=== PATIENT | male | born 1985 | race Caucasian/White ===

== ENCOUNTER 2020-09-17 18:02 | Emergency (ER) | payer BC, SELFPAY ==
--- NOTE | 2020-09-17 18:18 | XR_ITS ---
PROCEDURE: XR FOOT RT MIN 3V CLINICAL INDICATION: GREAT TOE PAIN COMPARISON: No exams were available for comparison FINDINGS: No fracture or dislocation. No lytic or blastic change. There is normal mineralization. The joint spaces are well-preserved. No significant degenerative/arthritic changes. No erosive changes evident. Other findings:None. IMPRESSION: No acute findings. Dictated by: Lorenzo Harry MD 09/18/2020 05:32 Lorenzo Harry MD in [place] 09/18/2020 05:32
[2020-09-17 18:22] VITALS: BP 140/94; PULSE 89; RESP 20; TEMP 37.1; O2SAT 99; BMI 42.2
--- NOTE | 2020-09-17 18:34 | HMH.EDUTC ---
[facility] [place] Disposition Clinical Impression: Toe pain, right Disposition: Home, Self-Care Condition on Discharge: Good Instructions: Toe Sprain Additional Instructions: elevate rest soak tylenol or motrin as needed for pain follow up with dr tavera if symptoms worsen or no no improvement retrun or be seen in ed Referrals: PCP,No [Primary Care Provider] - Pallavi Tavera DPM [Staff Physician] - Time of Disposition: 19:09 Medical Decision Making - [place] Inquiry Pt receiving controlled substance: No Vital Signs: 09/17/20 18:22 09/17/20 19:05 Temperature 98.7 F 98.7 F Temperature Source Oral Pulse Rate 89 Pulse Rate [Right Brachial] 89 Respiratory Rate 20 20 Blood Pressure 140/94 H Blood Pressure [Right Arm] 140/94 H Blood Pressure Mean [Right Arm] 109 Blood Pressure Source [Right Arm] Automatic Cuff Blood Pressure Position [Right Arm] Sitting 02 Sat by Pulse Oximetry 99 Oxygen Delivery Method Room Air - Lab Data Lab Results 09/17/20 18:15: Uric Acid 8.5 Orders (Tests/Meds): ORDERS Category Date Time Status XR foot RT min 3V Stat Exams 09/17/20 18:18 Taken [facility] [place] HPI - General Chief complaint: Urgent Treatment Center Stated complaint: possible broken toe R foot Time Seen by Provider: 09/17/20 18:34 Mode of Arrival: Ambulatory Source of Information: Patient Limitations: No Limitations Description of Symptoms (Recalled from Triage Doc. by RN): PATIENT C/O PAIN TO RIGHT GREAT TOE SINCE LAST WEEKEND HEENT Symptoms (Recalled from RN notes): No Resp Symptoms (Recalled from RN notes): No Skin Symptoms (Recalled from RN notes): No MS Symptoms (Recalled from RN notes): Yes Functional Status (Recalled from RN notes): wnl - History of Present Illness Provider Complaint: 35 yr old male presents for pain in rt toe. Pt states he might have dropped something on his toe but he does not remember. Pt states he is always dropping things on his feet. - Related Data Allergies Allergy/AdvReac Type Severity Reaction Status Date / Time Penicillins Allergy Verified 09/17/20 18:25 - Worker's Comp Is this a Worker's Comp case?: No [facility] History - Hepatitis A Screen Drug use history?: No High risk sexual behaviors?: No History of sexually transmitted infection?: No Currently employed?: No Childcare worker?: No Do you have indoor plumbing?: Yes Do you have electricity?: Yes Attestation statement:: This patient has been screened for Hepatitis A risk factors. I have reviewed the patient's past medical history: Yes - Social History Smoking Status: Never smoker Tobacco Type: smokeless tobacco # Packs/Day (cigarettes): 0 Alcohol Intake: never Occupational Status: other ROS Obtained: Yes Systems reviewed as appropriate & no additional complaints - Constitutional Constitutional: Reports system reviewed and no additional complaints, except as docu, Denies fever(s) - Eyes Eyes: Reports system reviewed and no additional complaints, except as docu, Denies dry eyes - ENT Ears, Nose, Mouth, and Throat: Reports system reviewed and no additional complaints, except as docu, Denies nose pain - Cardiovascular Cardiovascular: Reports system reviewed and no additional complaints, except as docu, Denies chest pain - Respiratory Respiratory: Yes system reviewed and no additional complaints, except as docu, No chest congestion - Gastrointestinal Gastrointestingal: Reports: system reviewed and no additional complaints, except as docu. Denies: nausea, vomiting - Genitourinary Male Genitourinary: Reports system reviewed and no additional complaints, except as docu - Musculoskeletal Musculoskeletal: Reports system reviewed and no additional complaints, except as docu, Reports as per HPI, Reports joint pain, Reports other - Integumentary/Breasts Skin/Breast: Reports system reviewed and no additional complaints, except as docu, Denies rash - Neurologic Neurologic: Reports system reviewed
[2020-09-17 18:41] LABS: Uric Acid 8.5 mg/dl (3.5-8.5)
[2020-09-17 19:05] VITALS: BP 140/94; PULSE 89; RESP 20; TEMP 37.1; O2SAT 99
== END 2020-09-17 19:15 | disposition home or self-care (01) ==
PROVIDERS: Emergency Provider Nurse Practitioner Family
DX: M79.674 Pain in right toe(s) (principal); Z88.0 Allergy status to penicillin
CPT/HCPCS: 73630; 84550; 99202

== ENCOUNTER 2023-06-29 08:17 | Emergency (ER) | payer BC, SELFPAY ==
[2023-06-29 08:35] VITALS: BP 136/84; PULSE 74; RESP 22; TEMP 36.7; O2SAT 98; BMI 46.1
--- NOTE | 2023-06-29 08:53 | EXP.UTC ---
Discharge Plan Disposition Patient Disposition: Home, Self-Care Condition: Good Prescriptions Prescriptions: New indomethacin 50 mg capsule 50 mg PO TID PRN (Reason: gout) Qty: 15 0RF Rx Instructions: administer with food or milk Take for gout symptoms as directed as needed No Action methylprednisolone 4 mg tablets,dose pack See Rx Instructions PO PER PKG DIR Qty: 21 0RF Rx Instructions: PO PER PKG DIR meloxicam 7.5 mg tablet 7.5 mg PO DAILY 30 Days Qty: 30 2RF clindamycin HCl 300 mg capsule 300 mg PO TID 14 Days Qty: 42 0RF Referrals Follow up/Referrals: Raulito Marie [Primary Care Provider] - See instructions Activity Restrictions/Add. Instructions Additional Instructions/Restrictions: Take medication as prescribed Follow up with your Family Doctor if no improvement or any worsening of symptoms Return if needed Start oral Indomethacin later this evening you had a shot of Toradol in the [facility] today and it is a similar medication Clinical Impressions Clinical Impression: Pseudogout Instructions Patient Instructions: DI for Pseudogout, Indomethacin Discharge ED Provider: Monica Batista [facility] HPI General Stated complaint: right foot pain/swelling, no accident Mode of Arrival: Ambulatory Source of Information: Patient Limitations: No Limitations Time Seen by Provider: 06/29/23 08:53 Description of Symptoms (Recalled from Triage Doc. by RN): PATIENT C/O GOUT FLARE UP TO RIGHT FOOT THAT STARTED YESTERDAY HEENT Symptoms (Recalled from RN notes): No Resp Symptoms (Recalled from RN notes): No Skin Symptoms (Recalled from RN notes): No MS Symptoms (Recalled from RN notes): Yes Functional Status (Recalled from RN notes): WNL History of Present Illness Provider Complaint: Patient states that he has a history of gout States that yesterday he noticed his right big toe felt sore and hurts when he moves it States that feels like it did when he had gout in the past so today when it was hurting worse he came in to get it checked Related Data Previous Rx's Medication Instructions Recorded clindamycin HCl 300 mg capsule 300 mg PO TID infection 14 days 09/19/20 #42 caps meloxicam 7.5 mg tablet 7.5 mg PO DAILY pain 30 days #30 09/19/20 tabs methylprednisolone 4 mg tablets in See Rx Instructions PO PER PKG DIR 09/19/20 a dose pack #21 tabs indomethacin 50 mg capsule 50 mg PO TID PRN gout #15 caps 06/29/23 Allergies Allergy/AdvReac Type Severity Reaction Status Date / Time Penicillins Allergy Verified 09/26/20 13:23 Worker's Comp Is this a Worker's Comp case?: No [facility] Disclaimer: The information contained in this section may have been updated after the patient was seen, as this information can be updated by other users. Social History Smoking Status: Never smoker alcohol intake: current current occupational status: employed and other Travel in the last 8 weeks: None ROS Obtained: Yes All systems reviewed & no additional complaints except as documented and Yes Systems reviewed as appropriate & no additional complaints except as documented Constitutional Constitutional: Reports system reviewed and no additional complaints, except as documented and Reports as per HPI ENT Ears, Nose, Mouth, and Throat: Reports system reviewed and no additional complaints, except as documented and Reports as per HPI Cardiovascular Cardiovascular: Reports system reviewed and no additional complaints, except as documented and Reports as per HPI Respiratory Respiratory: Reports system reviewed and no additional complaints, except as documented and Reports as per HPI Gastrointestinal Gastrointestingal: Reports system reviewed and no additional complaints, except as documented and as per HPI Musculoskeletal Musculoskeletal: Reports system reviewed and no additional complaints, except as documented and Reports as per HPI Comments: Pain and swelling with mild redness in right grea
[2023-06-29 09:36] LABS: Uric Acid 7.5 mg/dl (3.5-8.5)
[2023-06-29 09:58] VITALS: BP 136/84; PULSE 74; RESP 22; TEMP 36.7; O2SAT 98
== END 2023-06-29 10:00 | disposition home or self-care (01) ==
PROVIDERS: Emergency Provider Nurse Practitioner; PCP Family Medicine
DX: M11.271 Other chondrocalcinosis, right ankle and foot (principal)
CPT/HCPCS: 84550; 96372; 99212; 99214; G0463

== ENCOUNTER 2025-08-23 18:48 | Emergency (ER) | payer SELFPAY ==
--- OUTSIDE RECORDS SUMMARY | 2025-08-23 20:39 | XMS_ITS | Clinical Summary ---
Author Organization [facility] are Address [address] [place] [id number] Phone Care Team Providers Care Help Desk Team Leader Name Role Phone Unavailable Unavailable Conditions or Problems No information available. Medications No information available. Medications Administered No information available. Allergies, Adverse Reactions, Alerts No information available. Results No information available. Plan of Care No information available. Procedures No information available. Vital Signs No information available. Immunizations No information available. Advance Directives No information available.
== END 2025-08-23 20:48 | disposition left against medical advice (07) ==
LOC: ER 20:37
PROVIDERS: Emergency Provider Emergency Medicine; PCP Nurse Practitioner
DX: Z53.21 Procedure and treatment not carried out due to patient leaving prior to being seen by health care provider (principal)
CPT/HCPCS: 99211